=== PATIENT | female | born 1935 | race Caucasian/White ===

== ENCOUNTER → 2016-08-08 | Outpatient (CLI) | payer MEDICARE ==
[2014-07-12 23:26] VITALS: BP 137/67
[~2016-08-08] MED LIST: ACET500T3 PO; AMOX500C PO; CEPH500C PO; CRAN500C6 PO; CYAN10005 PO; DIPH25CA5 PO; DOCU50CA9 PO; ESCI10TA PO; ESTR30CR VG; FERR-26 PO; FEXO180T81 PO; FLUT16SP NS; IPRA4AER IH; IRBE300T3 PO; MIRT15TA3 PO; MONT10TA9 PO; OMEP20CA9 PO; OXYB5TAB7 PO; OXYC10TA PO; OXYC1TAB7 PO; POLY255P PO; PRED-220 PO; SIMV40TA3 PO
[2016-08-08 10:04] LABS: INR 1.1 (0.8-1.1); PROTHROMBIN TIME PATIENT 13.8 SEC (11.7-14.0)
[2016-08-08 11:13] LABS: BILIRUBIN,URINE NEGATIVE (NEG); GLUCOSE,URINE NEGATIVE (NEG); NITRITE,URINE NEGATIVE (NEG); PH,URINE 6.5; PROTEIN,URINE NEGATIVE (NEG-TRACE); UROBILINOGEN,URINE 0.2 mg/dL (0.2 mg/dL)
[2016-08-08 11:27] LABS: BACTERIA,URINE MANY /HPF (0-FEW); RBC,URINE 20-40 /HPF (0-2); SQUAMOUS EPITHELIAL CELL,UR MANY /LPF; WBC,URINE TNTC /HPF (0-4)
== END | disposition home or self-care (01) ==
LOC: SURGPAT 08:48
PROVIDERS: ATTEND Orthopaedic Surgery Sports Medicine
DX: M16.12 Unilateral primary osteoarthritis, left hip (principal)
CPT/HCPCS: 36415; 81001; 85610; 85651; 85730; 87086; 87641

== ENCOUNTER → 2016-08-26 | Outpatient (CLI) | payer MEDICARE ==
[2014-07-12 23:26] VITALS: BP 137/67
[~2016-08-26] MED LIST changes: +DOXY100C14 PO
[2016-08-26 09:44] LABS: BASO # 0.1 x10^3/uL (0.0-0.2); BASO % 1 % (0-3); EOS % 2 % (0-3); HEMATOCRIT 37.1 % (36.0-47.0); HEMOGLOBIN 12.5 g/dL (12.0-15.5); LYMPH # 0.8 x10^3/uL (1.0-4.8); LYMPH % 17 % (24-48); MEAN CORPUSCULAR HEMOGLOBIN 30 pg (25-35); MEAN CORPUSCULAR HGB CONC 34 g/dL (31-37); MEAN CORPUSCULAR VOLUME 89 fL (79-100); MONO % 10 % (0-9); NEUT % 71 % (31-73); PLATELET COUNT 188 x10^3/uL (140-400); RED BLOOD COUNT 4.18 x10^6/uL (3.50-5.40); RED CELL DISTRIBUTION WIDTH 14.5 % (11.5-14.5); WHITE BLOOD COUNT 4.8 x10^3/uL (4.0-11.0)
[2016-08-26 10:01] LABS: ALBUMIN 3.5 g/dL (3.4-5.0); CALCIUM 9.1 mg/dL (8.5-10.1); CREATININE 0.8 mg/dL (0.6-1.0); GFR 69.2; POTASSIUM 4.1 mmol/L (3.5-5.1)
[2016-08-26 10:11] LABS: INR 1.1 (0.8-1.1); PROTHROMBIN TIME PATIENT 13.4 SEC (11.7-14.0)
[2016-08-26 10:54] LABS: BILIRUBIN,URINE NEGATIVE (NEG); GLUCOSE,URINE NEGATIVE (NEG); NITRITE,URINE NEGATIVE (NEG); PH,URINE 7.5; PROTEIN,URINE NEGATIVE (NEG-TRACE); UROBILINOGEN,URINE 0.2 mg/dL (0.2 mg/dL)
[2016-08-26 11:39] LABS: BACTERIA,URINE 0 /HPF (0-FEW); SQUAMOUS EPITHELIAL CELL,UR FEW /LPF
== END | disposition home or self-care (01) ==
LOC: SURGPAT 08:55
PROVIDERS: ATTEND Orthopaedic Surgery Sports Medicine
DX: M16.12 Unilateral primary osteoarthritis, left hip (principal)
CPT/HCPCS: 36415; 80048; 81001; 82040; 85027; 85610; 85651; 85730; 87086; 87641

== ENCOUNTER → 2016-10-14 | Outpatient (CLI) | payer MEDICARE ==
[2016-09-12 15:05] VITALS: BP 125/57
[~2016-10-14] MED LIST changes: +MELO15TA6 PO; +WARF5TAB7 PO
[2016-10-14 15:30] LABS: INR 2.5 (0.8-1.1); PROTHROMBIN TIME PATIENT 25.8 SEC (11.7-14.0)
== END | disposition home or self-care (01) ==
LOC: LAB 14:46
PROVIDERS: ATTEND Orthopaedic Surgery Sports Medicine
DX: Z79.01 Long term (current) use of anticoagulants (principal)
CPT/HCPCS: 36415; 85610

== ENCOUNTER → 2017-09-24 | Outpatient (CLI) | payer MEDICARE | END | disposition home or self-care (01) | LOC: PNCL 10:35 | DX: M79.605 Pain in left leg (principal); M79.604 Pain in right leg; E03.9 Hypothyroidism, unspecified; Z85.828 Personal history of other malignant neoplasm of skin; Z90.710 Acquired absence of both cervix and uterus; Z96.642 Presence of left artificial hip joint | CPT/HCPCS: G0463 ==

== ENCOUNTER → 2017-10-08 | Outpatient (CLI) | payer MEDICARE ==
[~2017-10-08] MED LIST changes: -ACET500T3 PO; -AMOX500C PO; -CEPH500C PO; -CRAN500C6 PO; -CYAN10005 PO; -DIPH25CA5 PO; -DOCU50CA9 PO; -DOXY100C14 PO; -ESCI10TA PO; -ESTR30CR VG; -FERR-26 PO; -FEXO180T81 PO; -FLUT16SP NS; +IOHEXOL 180 MG/ML 10 ML VIAL.; -IPRA4AER IH; -IRBE300T3 PO; -MELO15TA6 PO; -MIRT15TA3 PO; -MONT10TA9 PO; -OMEP20CA9 PO; -OXYB5TAB7 PO; -OXYC10TA PO; -OXYC1TAB7 PO; -POLY255P PO; -PRED-220 PO; -SIMV40TA3 PO; -WARF5TAB7 PO; +methylPREDNISolone ACETATE 40 MG/ML VIAL.; +methylPREDNISolone ACETATE 80 MG/ML VIAL.
== END | disposition home or self-care (01) ==
LOC: PNCL 10:37
DX: M51.16 Intervertebral disc disorders with radiculopathy, lumbar region (principal); E78.00 Pure hypercholesterolemia, unspecified; I10 Essential (primary) hypertension; J44.9 Chronic obstructive pulmonary disease, unspecified; E66.9 Obesity, unspecified; K21.9 Gastro-esophageal reflux disease without esophagitis; M81.0 Age-related osteoporosis without current pathological fracture; F32.9 Major depressive disorder, single episode, unspecified; F41.9 Anxiety disorder, unspecified; Z90.710 Acquired absence of both cervix and uterus; Z87.440 Personal history of urinary (tract) infections; M19.90 Unspecified osteoarthritis, unspecified site; Z85.828 Personal history of other malignant neoplasm of skin; Z98.890 Other specified postprocedural states; Z82.49 Family history of ischemic heart disease and other diseases of the circulatory system; Z83.3 Family history of diabetes mellitus; Z80.49 Family history of malignant neoplasm of other genital organs
CPT/HCPCS: 62323; J1030; J1040; Q9965

== ENCOUNTER → 2017-10-22 | Outpatient (CLI) | payer MEDICARE | END | disposition home or self-care (01) | LOC: PNCL 09:39 | DX: M51.16 Intervertebral disc disorders with radiculopathy, lumbar region (principal); I10 Essential (primary) hypertension; E78.00 Pure hypercholesterolemia, unspecified; E03.9 Hypothyroidism, unspecified | CPT/HCPCS: G0463 ==

== ENCOUNTER → 2017-11-05 | Outpatient (CLI) | payer MEDICARE ==
[~2017-11-05] MED LIST changes: +LIDOCAINE 1% PF 2 ML VIAL.
== END | disposition home or self-care (01) ==
LOC: PNCL 09:03
DX: M51.16 Intervertebral disc disorders with radiculopathy, lumbar region (principal); E78.00 Pure hypercholesterolemia, unspecified; I10 Essential (primary) hypertension; J44.9 Chronic obstructive pulmonary disease, unspecified; E66.9 Obesity, unspecified; K21.9 Gastro-esophageal reflux disease without esophagitis; Z90.710 Acquired absence of both cervix and uterus; Z87.440 Personal history of urinary (tract) infections; M19.90 Unspecified osteoarthritis, unspecified site; M81.0 Age-related osteoporosis without current pathological fracture; F41.9 Anxiety disorder, unspecified; F32.9 Major depressive disorder, single episode, unspecified; Z85.828 Personal history of other malignant neoplasm of skin; Z82.49 Family history of ischemic heart disease and other diseases of the circulatory system; Z83.3 Family history of diabetes mellitus; Z80.59 Family history of malignant neoplasm of other urinary tract organ; Z98.890 Other specified postprocedural states
CPT/HCPCS: 62323; J1030; J1040; Q9965

== ENCOUNTER → 2017-11-19 | Outpatient (CLI) | payer MEDICARE | END | disposition home or self-care (01) | LOC: PNCL 09:05 | DX: M51.16 Intervertebral disc disorders with radiculopathy, lumbar region (principal); I10 Essential (primary) hypertension; E78.00 Pure hypercholesterolemia, unspecified; J44.9 Chronic obstructive pulmonary disease, unspecified; E03.9 Hypothyroidism, unspecified; K21.9 Gastro-esophageal reflux disease without esophagitis | CPT/HCPCS: G0463 ==

== ENCOUNTER → 2017-12-03 | Outpatient (CLI) | payer MEDICARE | LOC: PNCL 09:31 | DX: M51.16 Intervertebral disc disorders with radiculopathy, lumbar region (principal); I10 Essential (primary) hypertension; E78.00 Pure hypercholesterolemia, unspecified; J44.9 Chronic obstructive pulmonary disease, unspecified; K21.9 Gastro-esophageal reflux disease without esophagitis; M19.90 Unspecified osteoarthritis, unspecified site; M54.9 Dorsalgia, unspecified; F32.9 Major depressive disorder, single episode, unspecified; F41.9 Anxiety disorder, unspecified; E66.9 Obesity, unspecified; Z90.710 Acquired absence of both cervix and uterus; Z87.440 Personal history of urinary (tract) infections; Z98.890 Other specified postprocedural states | CPT/HCPCS: 62323; J1030; J1040; Q9965 ==

== ENCOUNTER 2018-02-11 09:28 | Emergency (ER) | payer MEDICARE ==
[~2018-02-11] VITALS: Ht 162.6 cm; Wt 96.2 kg
[~2018-02-11 09:28] MED LIST changes: +ACET-182 PO; +AMOX500C PO; +CEPH500C PO; +CRAN500C6 PO; +CYAN10005 PO; +DIPH25CA5 PO; +DOCU50CA9 PO; +DOXY100C14 PO; +ESCITALOPRAM OX10 MG PO; +ESCITALOPRAM OXA5 M1 PO; +ESTR30CR VG; +FERR325T14 PO; +FEXO180T81 PO; +FLUT16SP NS; -IOHEXOL 180 MG/ML 10 ML VIAL.; +IPRA4AER IH; +IRBE300T3 PO; -LIDOCAINE 1% PF 2 ML VIAL.; +MELO15TA6 PO; +MIRT15TA3 PO; +MONT10TA9 PO; +NITR50CA11 PO; +OMEP20CA9 PO; +OXYB5TAB7 PO; +OXYC10TA PO; +OXYC1TAB7 PO; +POLY255P PO; +PRED-220 PO; +SIMV40TA3 PO; +WARF-31 PO; -methylPREDNISolone ACETATE 40 MG/ML VIAL.; -methylPREDNISolone ACETATE 80 MG/ML VIAL.
--- NOTE | 2018-02-11 10:40 | RAD ---
Right knee, 3 views, 02/11/2018: HISTORY: Twisting injury, pain There is moderate spurring at the knee joint and at the patellofemoral articulation. No fracture or dislocation is identified. There appears to be a small joint effusion. A calcification in the soft tissues of the lower leg medially probably represents a large phlebolith. Arterial calcifications are present. IMPRESSION: 1. Moderate hypertrophic degenerative change. 2. Small knee joint effusion. 3. No acute bony abnormality is detected. Electronically signed by: Wesley Tate MD (02/11/2018 10:37 AM) [facility]
--- NOTE | 2018-02-11 10:46 | RAD ---
Right lower extremity venous ultrasound, 02/11/2018 : History: Right leg pain Duplex evaluation including grayscale, color flow and spectral Doppler analysis was performed. The femoral and popliteal veins show no filling defects to suggest DVT. The visualized deep veins in the right calf are unremarkable. IMPRESSION: There is no sonographic evidence of deep vein thrombosis in the right lower extremity Electronically signed by: Wesley Tate MD (02/11/2018 10:42 AM) [facility]
[2018-02-11 11:31] VITALS: BP 143/65
[2018-02-11] MEDS ORDERED: HYDR-2758 PO (11:38)
--- NOTE | 2018-02-11 11:38 | PHYS DOC ---
Past Medical History Past Medical History: Arthritis, GERD, High Cholesterol, Hypertension Additional Past Medical Histor: Seasonal allergies,Rheumatic fever,chronic back pain; left hip dislocation Past Surgical History: Hysterectomy, Tonsillectomy, Other Alcohol Use: None Drug Use: None Adult General Chief Complaint Chief Complaint: LOWER EXT PAIN HPI HPI Patient is a 82 year old female who presents to the ER with complaints of R knee and R calf pain for the last 2 weeks. Pt states she saw Dr. Jordan a few weeks ago for the same she was diagnosed with arthritis after an x-ray and had a steroid injection. Pt reports no relief of her pain after the injection. She denies any recent injury or fall, recent travel, shortness of breath, swelling, or chest pain. Pt currently rates her pain a 10 out of 10 on the pain scale. She reports concerns that she may have twisted her right knee. Review of Systems Review of Systems Constitutional: Denies fever or chills [] Musculoskeletal: Denies back pain, reports R knee pain and R calf pain Integument: Denies rash or skin lesions [] Neurologic: Denies headache, focal weakness or sensory changes [] All other systems were reviewed and found to be within normal limits, except as documented in this note. Allergies Allergies Allergies Coded Allergies Type Severity Reaction Last Updated Verified No Known Drug Allergies 09/24/17 No Physical Exam Physical Exam Constitutional: Well developed, well nourished, no acute distress, non-toxic appearance, obese. [] HENT: Normocephalic, atraumatic, bilateral external ears normal, nose normal. [ ] Eyes: conjunctiva normal, no discharge. [] Skin: Warm, dry, no erythema, no rash. [] Extremities: No cyanosis, no clubbing, ROM intact, no edema; reports tenderness to palpation of right calf and knee [] Neurologic: Alert and oriented X 3, normal motor function, normal sensory function, no focal deficits noted. [] Psychologic: Affect normal, judgement normal, mood normal. [] Current Patient Data Vital Signs Vital Signs Date Time Temp Pulse Resp B/P (MAP) Pulse Ox O2 Delivery O2 Flow Rate FiO2 02/11/18 09:30 98.3 72 16 136/67 (90) 98 Room Air 98.3 EKG EKG [] Radiology/Procedures Radiology/Procedures Right knee, 3 views, 02/11/2018: HISTORY: Twisting injury, pain There is moderate spurring at the knee joint and at the patellofemoral articulation. No fracture or dislocation is identified. There appears to be a small joint effusion. A calcification in the soft tissues of the lower leg medially probably represents a large phlebolith. Arterial calcifications are present. IMPRESSION: 1. Moderate hypertrophic degenerative change. 2. Small knee joint effusion. 3. No acute bony abnormality is detected. PROCEDURE: VENOUS LOWER EXTREMITY RIGHT Right lower extremity venous ultrasound, 02/11/2018 : History: Right leg pain Duplex evaluation including grayscale, color flow and spectral Doppler analysis was performed. The femoral and popliteal veins show no filling defects to suggest DVT. The visualized deep veins in the right calf are unremarkable. IMPRESSION: There is no sonographic evidence of deep vein thrombosis in the right lower extremity[] Course & Med Decision Making Course & Med Decision Making Pertinent Labs and Imaging studies reviewed. (See chart for details) no acute fracture or dislocation on x-ray, no DVT with U/S. Diagnosis: R knee and R lower leg pain, prescription for hydrocodone written. Follow-up with Dr. Jordan for further evaluation and treatment. Patient verbalized an understanding of home care, medications, follow-up, and return to ED instructions and was in agreement with the plan of care. [] Dragon Disclaimer Dragon Disclaimer This electronic medical record was generated, in whole or in part, using a voice recognition dictation system. Departure Departure Impression: Primary Impression: Right knee pain Additional Impression: Pain of right lower extremity Disposition: 01 HOME, SELF-CARE Condition: STABLE Referrals: WILBUR LIZ MD (PCP) MERLENE JORDAN II, MD Patient Instructions: Knee Pain, [id number]-Ozry Additional Instructions: Fill prescription(s) and use as directed. Recommend application of ice, elevation, and rest of affected extremity. Follow up with Dr. Jordan for further evaluation. Return to the ER if your symptoms worsen. Scripts Hydrocodone Bit/Acetaminophen (HYDROCODONE-APAP 5-325 ) 1 Each Tablet 1 TAB PO PRN Q6HRS PRN for PAIN for 2 Days, #8 TAB 0 Refills Prov: KIMBERLEY WEBER Jaylen [employer] 02/11/18 Problem Qualifiers Primary Impression: Right knee pain Chronicity: chronic Qualified Codes: M25.561 - Pain in right knee; G89.29 - Other chronic pain KIMBERLEY WEBER APRN Feb 11, 2018 11:38
== END 2018-02-11 11:47 | disposition home or self-care (01) ==
LOC: ER 09:28
DX: M25.561 Pain in right knee (principal); M79.661 Pain in right lower leg; E78.00 Pure hypercholesterolemia, unspecified; K21.9 Gastro-esophageal reflux disease without esophagitis; I10 Essential (primary) hypertension; G89.29 Other chronic pain; Z90.710 Acquired absence of both cervix and uterus
CPT/HCPCS: 73562; 93971; 99284

== ENCOUNTER → 2018-12-21 | Outpatient (CLI) | payer MEDICARE ==
[~2018-12-21] MED LIST changes: +ACET500T68 PO; +CYAN-25 PO; -CYAN10005 PO; +HYDR-2761 PO; +MONT10TA49 PO; -MONT10TA9 PO; +OMEP20CA10 PO; -OMEP20CA9 PO; +POLY17PO29 PO; -POLY255P PO; +POLY255P11 PO; +TAMS0.4C97 PO; +TRAM50TA PO
--- NOTE | 2018-12-21 14:22 | KCIC ---
MRI Lumbar Spine without contrast History: Radiculopathy, shooting pain into the left hip and leg for 2 weeks Technique: Multiplanar, multi sequential noncontrast MR imaging was performed of the lumbar spine. Comparison: None Findings: There is some motion degradation. There appears to be transitional anatomy. Most inferior fully formed intervertebral disc space is considered L5-S1 for this report although rudimentary appearance. There is assumption of 5 lumbar type vertebral bodies. Lumbar vertebral body stature is overall maintained, multilevel small Schmorl's nodes. There is grade 1 anterior spondylolisthesis at what is considered L3-4. There is multilevel moderate to severe degenerative disc disease greatest L2-3, to a lesser somewhat lesser degree at other levels other than sparing L5-S1. Conus terminates near L1. There is small hemangioma of the anterior L4 vertebral body. T10-11: This level was not included on the axial images. There is buckling of the ligamentum flavum and facet degenerative change. There is likely [id number] left and moderate to severe right neural foramina compromise. There is mild narrowing of the central canal. T11-12: Spinal canal and neural foramina are adequate. T12-L1: There is anterior epidural signal abnormality posterior to the mid to inferior T12 vertebral body more eccentric to left recess. This is internally hyperintense on T2 and T1 sequences comparing with disc. This measures about 1.3 cm CC by 1 cm transverse by 0.4 cm AP. There is also minimal disc osteophyte complex and bulge at the intervertebral disc space level. There is overall mild left lateral recess stenosis at and above the intervertebral disc space level. Left neural foramen is overall adequate, moderate narrowing of the right neural foramen. L1-L2: There is disc osteophyte complex and bulge. There is mild prominence of posterior epidural fat centrally. There is mild buckling of the ligamentum flavum and facet degenerative change. Combination of findings results in overall mild to moderate spinal stenosis including narrowing of the far lateral recesses bilaterally. There is [id number] left and moderate to severe right neural foramina compromise. L2-L3: There is disc osteophyte complex and bulge. There is mild prominence of posterior epidural fat centrally. There is mild to moderate buckling of the ligamentum flavum. Combination of findings results in moderate spinal stenosis, left greater than right lateral recess stenosis. There is contact of the descending left L3 nerve root. There is moderate to severe left and mild right neural foramina compromise. L3-L4: There is partial uncovering of the posterior aspect of the disc due to spondylolisthesis with superimposed disc osteophyte complex and bulge. There is mild to moderate buckling of the ligamentum flavum and moderate right greater than left facet hypertrophic change. Combination of findings results in severe spinal stenosis, lateral recess stenosis bilaterally greater on the left. There is near complete effacement of subarachnoid space. There is moderate to severe right and [id number]-goqqosfy left neural foramina compromise. L4-L5: There is moderate to severe left and mild right facet degenerative change. There is mild buckling of the ligamentum flavum greater on the left. There is minimal disc osteophyte complex and bulge. There is moderate to severe narrowing of the far left lateral recess with contact of the descending left L5 nerve root, central canal and right lateral recess overall adequate. There is severe narrowing of the left neural foramen with contact of the exiting left L4 nerve root, moderate narrowing of the right neural foramen. Left lateral disc osteophyte complex and protrusion is near the extraforaminal left L4 nerve root. L5-S1: Spinal canal and neural foramina are adequate. Impression: 1. There appears to be transitional anatomy of the lumbar spine. There is grade 1 anterior spondylolisthesis at what is considered L3-4 with most inferior formed although rudimentary intervertebral disc space considered L5-S1, assumption of 5 lumbar type vertebral bodies. 2. There is severe spinal stenosis at what is considered L3-4, moderate spinal stenosis at L2-3 and left lateral recess stenosis at L4-5. 3. There is multilevel lumbar neural foramina compromise, more significant narrowing on the left at L4-5 and L2-3, on the right at L3-4, L1-L2, and T10-11, to a lesser degree at other levels as stated. Left lateral disc osteophyte complex and protrusion at L4-5 is near the extraforaminal left L4 nerve root more laterally. 4. There is multilevel lumbar degenerative disc disease. 5. There is grade 1 anterior spondylolisthesis at L3-4 at which there is facet degenerative change. Electronically signed by: Miguel Crowell MD (12/21/2018 2:19 PM) [facility]
== END | disposition home or self-care (01) ==
LOC: KCIC MRI 12:05
PROVIDERS: ATTEND Orthopaedic Surgery Sports Medicine
DX: M43.16 Spondylolisthesis, lumbar region (principal); M51.16 Intervertebral disc disorders with radiculopathy, lumbar region; M48.05 Spinal stenosis, thoracolumbar region; M25.78 Osteophyte, vertebrae; M53.3 Sacrococcygeal disorders, not elsewhere classified
CPT/HCPCS: 72148

== ENCOUNTER → 2018-12-24 | Outpatient (CLI) | payer MEDICARE ==
--- NOTE | 2018-12-24 09:53 | PAIN ---
DATE OF SERVICE: 12/24/2018 PROGRESS NOTE FOR PAIN CLINIC DIAGNOSIS: Lumbar radiculopathy with lumbar degenerative disk disease. HISTORY OF PRESENT ILLNESS: The patient is an 83-year-old female who returns for followup status post lumbar epidural steroid injections, last seen 12/03/2017. The patient did very well with about 85% improvement overall in her low back and left leg pain. The patient reports the pain has been returning now. She went to see her orthopedist who did some x-rays and a new MRI scan of the lumbar spine as well, showing good intact left hip arthroplasty without abnormalities. Lumbar MRI scan showing advanced multilevel degenerative disk disease in the lumbar spine, especially at the L4-L5 level showing moderate to severe narrowing of the far left lateral recess with contact to descending left L5 nerve root, severe narrowing of the left neural foraminal recess and foramen with contact exiting the left L4 nerve root with moderate narrowing of the right neural foramen as well. The patient reports the pain is worse with walking, standing, changing positions. She was helping needlemaker do some work on the sink and she was bent over in odd position, which caused her back to hurt and that was about 2 weeks ago. The patient reports other than that, she was doing great with distance walking, household activities. Resting well, sleeping very well at night until the last 2 weeks, the pain has returned now in the lower extremity, posterior lateral thigh, posterior, lateral anterior thigh, anterior medial thigh, medial lower leg and anterior ankle on the left side only. The patient reports it is a 10 on a scale of 10 at its worst, 9 on average and 9 at its least and is shooting, burning pain, constant pain as well. PHYSICAL EXAMINATION: VITAL SIGNS: The patient's blood pressure is 141/84, pulse 79, respirations 16, temperature 97.9 degrees Fahrenheit, height is 5 feet 4 inches and weight is 205 pounds. GENERAL: The patient is awake, alert, oriented, appropriate, very pleasant demeanor. HEENT: Head shows atraumatic. Extraocular movements are intact and symmetrical. Oral cavity: Mucous membranes moist and pink. Dentition is intact. NECK: Shows anterior throat supple without palpable lymphadenopathy noted. Swallow reflex symmetrical. CHEST: Shows normal on inspection. Breath sounds clear to auscultation bilaterally. HEART: Shows S1, S2 clear. No murmurs auscultated. ABDOMEN: Obese, soft, nontender, nondistended. No palpable organomegaly is noted. No rebound or guarding demonstrated. BACK: Shows spine grossly in the midline. Slight exaggeration of thoracic kyphosis, some minor flattening of lumbar lordotic curvature. Lumbar paraspinous muscle shows symmetrical on inspection, on palpation shows some moderate tenderness diffusely bilaterally going diffusely without radiation. EXTREMITIES: The patient's lower extremities show deep tendon reflexes at 1+ in the patellar and tendo calcaneus tendons are equal. Motor exam is approximately 4 on a scale of 5 with symmetrical dorsiflexion, extension, quadriceps and hamstring flexion. The patient has a mild straight leg raise on the left side about 35 degrees, decreased with knee flexion, right side is negative. Peripheral pulses are 1+ posterior tibia. No peripheral edema is noted bilaterally. Options were discussed with the patient. The patient's old chart was reviewed as her current medication regimen updated. Current review of systems updated today as well. We will preauthorize the patient for lumbar epidural steroid. She has done very well with these in the past. She has a clinical L4-L5 radiculopathy in the left leg. We will plan on translaminar approach at the L4-L5 level for epidural steroid injection. In the meantime, the patient was given a prescription for tramadol takes 4-6 hours p.r.n. pain with instructions, side effects to be aware of discussed. The patient will follow up in approximately 1 week. We will plan on lumbar epidural steroid injection at that time. SHIRLEY BLEVINS MD DR: XIOMY/cindy JOB#: [id number] / [id number]
== END | disposition home or self-care (01) ==
LOC: PNCL 08:20
PROVIDERS: ATTEND Anesthesiology
DX: M51.16 Intervertebral disc disorders with radiculopathy, lumbar region (principal); M48.062 Spinal stenosis, lumbar region with neurogenic claudication
CPT/HCPCS: G0463

== ENCOUNTER → 2019-01-28 | Outpatient (CLI) | payer MEDICARE ==
--- NOTE | 2019-01-28 17:33 | PAIN ---
DATE OF SERVICE: 01/28/2019 PROGRESS NOTE FOR PAIN CLINIC DIAGNOSES: Lumbar radiculopathy with lumbar degenerative disk disease. HISTORY OF PRESENT ILLNESS: The patient is an 83-year-old female who returns for followup status post lumbar epidural steroid injection x 1 on 01/07/2019. The patient reports to about 90% improvement, currently doing well, but still some pain in the low back and left leg and posterior gluteus, radiating to posterior thigh and posterior calf. The patient reports this as numbness, tingling, dull, and shooting pain, but much improved. The patient reports she is increasing her daily activities with distance walking, doing household activities with much greater ease and comfort. The patient reports with standing now longer during the day, doing some household activities, she is starting to notice the pain again returning in the low back and left leg. The patient reports it is a 4 on a scale of 10 at its worst, 3 on average, 3 at its least, and is a 3 today. It is beginning to traveling to the lateral thigh and anterior medial thigh as well with standing. The patient reports no new motor or sensory deficits, no new bowel or bladder incontinence or other complaints. The patient continues to do some stretching and strengthening exercises on her own at home and has been walking daily. PHYSICAL EXAMINATION: VITAL SIGNS: The patient's blood pressure is 137/91, pulse 80, respirations 16, and temperature is 98.1 degrees Fahrenheit. Height is 5 feet 4 inches, weight is 194 pounds. GENERAL: The patient is awake, alert, oriented, appropriate, very pleasant demeanor. HEENT: Head shows normocephalic and atraumatic. Extraocular movements are intact and symmetrical. Oral cavity: Mucous membranes are moist and pink. Dentition is intact. NECK: Shows anterior throat supple. CHEST: Shows normal on inspection. Breath sounds are clear to auscultation bilaterally. HEART: Shows S1 and S2 clear. ABDOMEN: Obese, but soft, nontender, and nondistended. BACK: Shows spine grossly in the midline. Slight exaggeration of thoracic kyphosis, some minor flattening of lumbar lordotic curvature. Lumbar paraspinous muscle shows symmetrical on inspection. On palpation shows some moderate tenderness diffusely throughout the middle and lower distribution of paraspinous muscle ____ dorsal lumbar spine as well as extension and flexion without difficulty. EXTREMITIES: Lower extremities show deep tendon reflexes 1+ in the patellar and tendo-calcaneus tendons. Motor exam is approximately 4 on a scale of 5, but equal and symmetrical, with dorsiflexion, extension, quadriceps, and hamstring flexion. Peripheral pulses are 1+ posterior tibial. No peripheral edema is noted bilaterally. Options were discussed with the patient. The patient's old chart was reviewed as well as her current medication regimen updated. Current review of systems updated today as well. We will preauthorize the patient for a second lumbar epidural steroid injection. She did very well with the first injection about 90% improvement for the first 3 weeks after the injection, now returning in a radicular pattern at L4-L5 dermatomal distribution on the left leg. The patient will continue with stretching and strengthening exercises, walking daily as tolerated. We will have her return for translaminar L4-L5 epidural injection in approximately 2 weeks as scheduled. The patient is traveling to [place]. In the meantime, we will have her take Medrol Dosepak with her in case she needs while she is gone at it has worked well for her in the past by her report. The patient was given instruction as well as side effects to be aware of the medication. We will follow up as scheduled for lumbar epidural steroid injection. SHIRLEY BLEVINS MD DR: XIOMY/cindy JOB#: [id number] / [id number]
== END | disposition home or self-care (01) ==
LOC: PNCL 07:56
PROVIDERS: ATTEND Anesthesiology
DX: M51.16 Intervertebral disc disorders with radiculopathy, lumbar region (principal); M40.294 Other kyphosis, thoracic region; M40.46 Postural lordosis, lumbar region; E66.9 Obesity, unspecified
CPT/HCPCS: G0463

== ENCOUNTER → 2019-02-16 | Outpatient (CLI) | payer MEDICARE ==
[~2019-02-16] MED LIST changes: +IOHEXOL 180 MG/ML 10 ML VIAL. ONE; +methylPREDNISolone ACETATE 40 MG/ML VIAL. ONE; +methylPREDNISolone ACETATE 80 MG/ML VIAL. ONE
--- NOTE | 2019-02-16 10:09 | PAIN ---
DATE OF SERVICE: 02/16/2019 PROGRESS NOTE FOR PAIN CLINIC DIAGNOSES: Lumbar radiculopathy with lumbar degenerative disk disease. HISTORY OF PRESENT ILLNESS: The patient is an 83-year-old female who returns for followup status post preauthorization for lumbar epidural steroid injection. After last injection, he did very well and reports pain is returning now in the low back, left lower extremity, posterior gluteus, posterior thigh, lateral thigh, anterior thigh, medial thigh. The patient reports it is 7 on a scale of 10 at its worst over the past week, 6 on average, 6 at its least and is a 6 today. The patient has recently returned from an automotive trip to [place] in the back and has been in the car for a prolonged period of time, which exacerbated the pain to a moderate extent. The patient reports it is aching, tingling, burning at this point, low back and into the left leg, no new motor or sensory deficits, no new bowel or bladder incontinence or other complaints. PHYSICAL EXAMINATION: VITAL SIGNS: The patient's blood pressure 144/72, pulse 63, respirations 18, temperature 98.1 degrees Fahrenheit, height is 5 feet 4 inches, weight is 196 pounds. GENERAL: The patient is awake, alert, oriented, appropriate, very pleasant demeanor. HEENT: Head is normocephalic, atraumatic. Extraocular movements are intact and symmetrical. Oral cavity: Mucous membranes moist and pink. Dentition is intact. NECK: Shows anterior throat supple without palpable lymphadenopathy noted. Swallow reflex symmetrical. CHEST: Shows normal on inspection. Breath sounds clear to auscultation bilaterally. HEART: Shows S1, S2 clear. No murmurs auscultated. ABDOMEN: Soft, obese, nontender, nondistended. BACK: Shows spine grossly in the midline. Normal appearing thoracic kyphosis and some flattening of lumbar lordotic curvature. Lumbar paraspinous muscle shows symmetrical on inspection, on palpation shows some moderate tenderness diffusely bilaterally going diffusely without radiation. EXTREMITIES: The patient's lower extremities show deep tendon reflexes at 1+ in the patellar and tendo calcaneus tendons. Motor exam is approximately 4 on a scale of 5, but equal and symmetrical dorsiflexion, extension, quadriceps and hamstring flexion. Peripheral pulses are 1+ posterior tibia. No peripheral edema is noted bilaterally. Options were discussed with the patient. The patient's old chart was reviewed as her current medication regimen updated. Current review of systems updated today as well. We will proceed with a second in the series of lumbar epidural steroid injection today with fluoroscopic guidance. Risks were again discussed including, but not limited to bleeding, infection, possibility of epidural hematoma, subsequent neurological compromise, dural puncture, headaches, spinal cord and/or nerve damage, side effects of steroid medication and poor results regarding pain control. The patient understands and wished to proceed. The patient will return to clinic in approximately 2 weeks for followup. She was counseled on return appointment, activity level and side effects to be aware of. DIAGNOSIS: Lumbar radiculopathy with lumbar degenerative disk disease. PROCEDURE: Lumbar epidural steroid injection, translaminar approach at the L4-L5 level using C-arm fluoroscopic guidance under sterile prep and drape using local anesthetic. MEDICATION INJECTED: A total of 120 mg Depo-Medrol plus 10 mL of preservative-free normal saline and 2 mL of contrast. CONDITION AT DISCHARGE: Stable. The patient tolerated the procedure well, had no complications. SHIRLEY BLEVINS MD DR: XIOMY/cindy JOB#: [id number] / [id number]
== END ==
LOC: PNCL 08:42
PROVIDERS: ATTEND Anesthesiology
DX: M51.16 Intervertebral disc disorders with radiculopathy, lumbar region (principal)
CPT/HCPCS: 62323; J1030; J1040; Q9965

== ENCOUNTER → 2019-03-04 | Outpatient (CLI) | payer MEDICARE ==
[~2019-03-04] MED LIST changes: -IOHEXOL 180 MG/ML 10 ML VIAL. ONE; +OXYB5TAB10 PO; -OXYB5TAB7 PO; +SIMV40TA18 PO; -SIMV40TA3 PO; -methylPREDNISolone ACETATE 40 MG/ML VIAL. ONE; -methylPREDNISolone ACETATE 80 MG/ML VIAL. ONE
--- NOTE | 2019-03-04 10:16 | PAIN ---
DATE OF SERVICE: 03/04/2019 PROGRESS NOTE FOR PAIN CLINIC DIAGNOSIS: Lumbar radiculopathy with lumbar degenerative disk disease. HISTORY OF PRESENT ILLNESS: The patient is an 83-year-old female who returns for followup status post lumbar epidural steroid injection x 2. The patient reports about 75% improvement initially for the first 2 weeks, now about 50% improvement overall. The pain began to return in the low back and into the left lower extremity, posterior gluteus, posterolateral thigh, lateral anterior thigh, medial thigh and L4-L5 dermatomal distribution as was previously. The patient reports that she had been on a long car trip and has done well with this. She is very pleased with her pain; it is still manageable even after a long car ride. The patient reports even increased activity, doing household activities with greater ease and comfort and doing activities of daily living with greater ease and comfort, traveling better. The patient reports her pain is a 3 on a scale of 10 at its worst over the past week, 2 on average, 2 at its least and is a 2 today. The patient reports it is aching, dull in the left leg and low back. The patient reports no new motor or sensory deficits, no new bowel or bladder incontinence or other complaints. PHYSICAL EXAMINATION: VITAL SIGNS: The patient's blood pressure 113/65, pulse 68, respirations 16, temperature 98.1 degrees Fahrenheit, height is 5 feet 4 inches, weight is 192 pounds. GENERAL: The patient is awake, alert, oriented, appropriate, very pleasant demeanor. HEENT: Head is normocephalic, atraumatic. Extraocular movements are intact and symmetrical. Oral cavity: Mucous membranes moist and pink. Dentition is intact. NECK: Shows anterior throat supple without palpable lymphadenopathy noted. No difficulty with rotational motion of cervical spine, both laterally as well as extension and flexion. CHEST: Shows normal on inspection. Breath sounds clear to auscultation bilaterally. HEART: Shows S1, S2 clear. No murmurs auscultated. ABDOMEN: Soft, nontender, nondistended. No palpable organomegaly is noted. No rebound or guarding demonstrated. BACK: Shows spine grossly in the midline. Normal appearing thoracic kyphosis and some slight flattening of lumbar lordotic curvature. Lumbar paraspinous muscle shows symmetrical on inspection. On palpation, there is some moderate tenderness diffusely bilaterally going diffusely without significant radiation. EXTREMITIES: The patient's lower extremities show deep tendon reflexes at 1+ in the patellar and tendo calcaneus tendons. Motor exam is approximately 4 on a scale of 5, but equal and symmetrical. Peripheral pulses are 1+ in posterior tibia. No peripheral edema is noted. PLAN: Options were discussed with the patient. The patient's old chart was reviewed as her current medication regimen updated. Current review of systems updated today as well. We will preauthorize the patient for a third in a series of lumbar epidural steroid injection, is doing quite well with good significant reduction in pain but still clinical radiculopathy in the L4-L5 dermatomal distribution on the left side, returning slowly. The patient will be maintaining her stretching and strengthening exercises as well as walking daily as tolerated. She is still using her cane when she ambulates as well. I have encouraged her to maintain this. The patient will return to clinic for lumbar epidural steroid injection at L4-L5 level, translaminar approach for the L4-L5 left-sided radiculopathy. SHIRLEY BLEVINS MD DR: [email or web address]/cindy JOB#: [id number] / [id number]
== END | disposition home or self-care (01) ==
LOC: PNCL 09:00
PROVIDERS: ATTEND Anesthesiology
DX: M51.16 Intervertebral disc disorders with radiculopathy, lumbar region (principal)
CPT/HCPCS: G0463